=== PATIENT | female | born 1980 | race Caucasian/White ===

== ENCOUNTER 2016-11-04 23:52 | Emergency (ER) | payer OTHER ==
[2016-11-04 23:56] VITALS: TEMP 97.9; BMI 25.0
[2016-11-05] MEDS ORDERED: ACETAMINOPHEN 325 MG TABLET (FP) PO ONE (00:35)
[2016-11-05] MEDS ORDERED: diazePAM 5 MG TABLET PO ONE (00:35)
[2016-11-05] MEDS ORDERED: KETOROLAC TROMETHAMINE 30 MG/1 ML VIAL IVPUSH ONE (00:38)
--- NOTE | 2016-11-05 00:40 | PDOC ---
History of Present Illness - History of Present Illness Initial Comments: 11/05/16 01:30 Patient is a 36 year old female with no significant medical hx who is presenting to the ED with four hours of left shoulder pain and neck pain. Today the patient was at [employer] for her daughters birthday when she suddenly began experiencing left shoulder pain that radiates up her neck, down her arm. The patient endorses some tingling to her left arm. She also reports chest pain , palpitations and mild shortness of breath that began upon arrival to the ED. Denies recent trauma, injury, heavy lifting. Patient states something like this happened similarly a few months ago that she came to the ED but left prior to being seen but was not as severe. <Tosha Peters - Last Filed: 11/05/16 01:30> - General History Source: Patient Exam Limitations: No Limitations, Language Barrier (history taken in telugu by myself and via translation form with pt permission) - History of Present Illness Initial Comments: 11/05/16 00:38 <Rainer Barrett - Last Filed: 11/05/16 01:59> - General Chief Complaint: Pain Stated Complaint: LT ARM NUMB/HEADACHE Time Seen by Provider: 11/05/16 00:23 Past History <Tosha Peters - Last Filed: 11/05/16 01:30> - Past Medical History Asthma: No Cancer: No Cardiac Disorders: No Diabetes: No HTN: No Seizures: No Thyroid Disease: No - Surgical History Cholecystectomy: Yes - Reproductive History (#): 5 Para: 2 Spontaneous : 2 - Immunization History Td Vaccination: Yes TDAP Vaccination: Yes Immunization Up to Date: Yes - Psycho/Social/Smoking Cessation Hx Anxiety: No Suicidal Ideation: No Smoking Status: No Smoking History: Never smoked Have you smoked in the past 12 months: No Number of Cigarettes Smoked Daily: 0 Hx Alcohol Use: No Drug/Substance Use Hx: No Hx Substance Use Treatment: No <Rainer Barrett - Last Filed: 11/05/16 01:59> - Past Medical History Allergies/Adverse Reactions: Allergies Allergy/AdvReac Type Severity Reaction Status Date / Time No Known Drug Allergies Allergy Verified 11/04/16 23:56 cats/dogs/pollon Allergy Mild Rash Uncoded 11/04/16 23:56 Home Medications: Ambulatory Orders Cyclobenzaprine HCl [Flexeril 10 mg] 10 mg PO BID PRN #14 tablet 11/05/16 Review of Systems - Review of Systems Comments:: 11/05/16 01:31 CONSTITUTIONAL: No reported: Fever, Chills, Diaphoresis, Generalized Weakness, Malaise, Loss of Appetite HEENT: No reported: Rhinorrhea, Nasal Congestion, Throat Pain, Throat Swelling, Difficulty Swallowing, Mouth Swelling, Ear Pain, Eye Pain, Visual Changes CARDIOVASCULAR: Reported: Chest Pain, Palpitations No reported: Syncope, Irregular Heart Rate, Lightheadedness, Peripheral Edema RESPIRATORY: No reported: Cough, Shortness of Breath, SOB with Exertion, Orthopnea, Wheezing , Stridor, Hemoptysis GASTROINTESTINAL: No reported: Abdominal pain, Abdominal Distension, Nausea, Vomiting, Diarrhea, Constipation, Melena, Hematochezia GENITOURINARY: No reported: Dysuria, Frequency, Urgency, Hesitancy, Flank Pain, Genital Pain MUSCULOSKELETAL: Reported: Neck Pain, Shoulder Pain, LUE Pain No reported: Myalgia, Arthralgia, Joint Swelling SKIN: No reported: Rash, Itching, Pallor HEMEATOLOGIC/IMMUNOLOGIC: No reported: Easy Bleeding, Easy Bruising, Lymphadenopathy, Frequent infections ENDOCRINE: No reported: Unexplained Weight Gain, Unexplained Weight Loss, Heat Intolerance , Cold Intolerance NEUROLOGIC: Reported: Tingling Left Hand No reported: Headache, Focal Weakness, Vertigo, Lightheadedness, Unsteady Gait, Seizure, Mental Status Changes, Incontinence PSYCHIATRIC: No reported: Anxiety, Depression <Magdalene Petersa - Last Filed: 11/05/16 01:30> - Review of Systems Able to Perform ROS?: Yes Comments:: 11/05/16 00:39 <Rainer Barrett - Last Filed: 11/05/16 01:59> *Physical Exam - Vital Signs Last Vital Signs Temp Pulse Resp BP Pulse Ox 97.9 F 72 18 141/74 99 11/04/16 23:54 11/04/16 23:54 11/04/16 23:54 11/04/16 23:54 11/04/16 23:54 - Physical Exam Comments: 11/05/16 01:31 GENERAL: The patient is awake, alert, and fully oriented, Nontoxic - in no acute distress. HEAD: Normocephalic, atraumatic. EYES: extraocular movements intact, sclera anicteric, conjunctiva clear. ENT: Normal voice, Moist mucous membranes. NECK: Normal range of motion, supple LUNGS: Breath sounds equal, clear to auscultation bilaterally. No wheezes, no rhonchi, no rales. HEART: Regular rate and rhythm, normal S1 and S2 without murmur, rub or gallop. ABDOMEN: Soft, nontender, normoactive bowel sounds. No guarding, no rebound. . No CVA tenderness EXTREMITIES: Normal range of motion, no edema. No clubbing or cyanosis. No cords, erythema, or tenderness. radial pulses symmetric, sensation symmetric, strength symmetric in inventory planner strength BACK: no focal midline tenderness, +tenderness at the L trapezius with spasm/ mild hypertropotphy, NEUROLOGICAL: No facial assymetry, Normal speech, moving all 4 extremities spontaneously and symmetrically. PSYCH: Normal mood, normal affect. SKIN: Warm, Dry, normal turgor <FranTosha - Last Filed: 11/05/16 01:30> - Vital Signs Last Vital Signs Temp Pulse Resp BP Pulse Ox 97.9 F 72 18 141/74 99 11/04/16 23:54 11/04/16 23:54 11/04/16 23:54 11/04/16 23:54 11/04/16 23:54 <Rainer Barrett - Last Filed: 11/05/16 01:59> Heart Score/ECG Review - ECG Impressions Comment:: 11/05/16 00:56 Twelve-lead EKG was performed and reviewed by me. There is normal sinus rhythm with a normal rate. Rate of 65 The axis is normal. The intervals are normal. There is normal R wave progression There are no ST or T wave abnormalities. There artifacts present Impression: Normal twelve-lead EKG <Rainer Barrett - Last Filed: 11/05/16 01:59> ED Treatment Course - LABORATORY CBC & Chemistry Diagram: 11/05/16 00:50 11/05/16 00:50 - ADDITIONAL ORDERS Additional order review: Laboratory Results 11/05/16 11/05/16 00:50 00:50 Sodium 140 Potassium 4.0 Chloride 102 Carbon Dioxide 28 Anion Gap 10 BUN 16 D Creatinine 0.7 D Creat Clearance w eGFR > 60 Random Glucose 83 D Calcium 8.7 Total Bilirubin 0.2 D AST 26 ALT 53 D Alkaline Phosphatase 88 D Total Protein 7.8 Albumin 3.8 D Serum , Qual Negative 11/05/16 00:50 RBC 4.60 MCV 78.7 L MCHC 33.2 RDW 14.8 MPV 9.2 Neutrophils % 60.3 D Lymphocytes % 28.3 D Monocytes % 7.4 Eosinophils % 3.1 Basophils % 0.9 - Medications Given in the ED: ED Medications Discontinued Medications Generic Name Dose Route Start Last Admin Trade Name Boaz PRN Reason Stop Dose Admin Acetaminophen 650 mg 11/05/16 00:35 11/05/16 00:51 Tylenol - PO 11/05/16 00:36 650 mg ONCE ONE Administration Diazepam 5 mg 11/05/16 00:35 11/05/16 00:51 Valium - PO 11/05/16 00:36 5 mg ONCE ONE Administration Ketorolac Tromethamine 30 mg 11/05/16 00:38 11/05/16 01:20 Toradol Injection - IVPUSH 11/05/16 00:39 30 mg ONCE ONE Administration <Tosha Peters - Last Filed: 11/05/16 01:30> - LABORATORY CBC & Chemistry Diagram: 11/05/16 00:50 11/05/16 00:50 - RADIOLOGY Radiology Studies Ordered: Category Date Time Status CHEST X-RAY PORTABLE* [RAD] Stat Radiology 11/05/16 00:36 Ordered <Rainer Barrett - Last Filed: 11/05/16 01:59> Medical Decision Making - Medical Decision Making 11/05/16 00:39 36y F no significant pmhx presents with neck/shoulder pain and L arm tingling. The pt notes pain started this evening, palpable tenderness and tension in the L trapezius - suspect neck/muscle strain/spasm - but consider possible cervical radiculopathy - but as pt has reproducible tendenress, i think this is msk in nature. also consider aortic dissection - however the pt is young, not particularly hypertensive and has no risk factors for vascular disease. will give toradol, valium, tylenol will ck labs, cxr will reassess, if not improved will consider imaging A portion of this note was documented by scribe services under my direction. I have reviewed the details of the note, within reason, and agree with the documentation with the following case summary and management plan written by 11/05/16 01:45 cxr unremarkable pt feeling substantially improved still minimal necks/houlder pain that is reproducible - no associated chest pain , arm numbness/tingling will d/c the pt with supportive care for muscle spasm will hve pt fu with pmd for reevaluation return precautions were discussed I discussed the physical exam findings, ancillary test results and final diagnoses with the patient. I answered all of the patient's questions. The patient was satisfied with the care received and felt comfortable with the discharge plan and treatment plan. The patient will call their primary care physician within 24 hours to arrange follow-up and will return to the Emergency Department with any new, persistent or worsening symptoms. 11/05/16 01:59 <Rainer Barrett - Last Filed: 11/05/16 01:59> *DC/Admit/Observation/Transfer - Attestations Scribe Attestion: 11/05/16 01:32 Documentation prepared by Tosha Peters, acting as medical delivery technician for Rainer Barrett MD. <Tosha Peters - Last Filed: 11/05/16 01:30> - Discharge Dispostion Admit: No <Rainer Barrett - Last Filed: 11/05/16 01:59> Diagnosis at time of Disposition: Cervical radiculopathy - Discharge Dispostion Disposition: HOME Condition at time of disposition: Improved - Referrals Referrals: Anup Reis MD [Primary Care Provider] - - Patient Instructions Printed Discharge Instructions: DI for Neck Pain, DI for Cervical Radiculopathy Additional Instructions: Return to the emergency department immediately with ANY new, persistent or worsening symptoms including numbness, tingling, weakness, fevers or any other concerns. Take ibuprofen (400mg)/tylenol(650mg) every 6 hours for 2 days. Take the flexeril if you still have pain/discomfort. Caution in using flexeril as it may make you sleepy. Do not drive or put yourself in any position where you would be in danger. Apply heat to your sore muscles. You MUST call and follow up with your doctor tomorrow for further evaluation of your symptoms. Your emergency department visit is not complete without a followup with your doctor for reevaluation.. Results were discussed with you. Please make sure your doctor reviews the results of your emergency evaluation. Print Language: LAO
[2016-11-05] MEDS ORDERED: diazePAM 5 MG TABLET ONE (00:41)
[2016-11-05] MEDS ORDERED: ACETAMINOPHEN 325 MG TABLET (FP) ONE (00:41)
[2016-11-05 00:57] LABS: BASOPHIL 0.9 % (0-2.0); EOSINOPHIL 3.1 % (0-4.5); MCH 26.2 pg (25.7-33.7); MCHC 33.2 g/dl (32.0-36.0); MEAN CELL VOLUME 78.7 fl (80-96); MEAN PLT VOLUME 9.2 fl (7.5-11.1); NEUTROPHILS 60.3 % (42.8-82.8); PLATELET COUNT 292 K/MM3 (134-434); RDW 14.8 % (11.6-15.6); WHITE BLOOD COUNT 11.7 K/mm3 (4.0-10.0)
[2016-11-05] MEDS ORDERED: KETOROLAC TROMETHAMINE 30 MG/1 ML VIAL ONE (01:17)
[2016-11-05 01:23] LABS: ALBUMIN 3.8 g/dl (3.4-5.0); ANION GAP 10 (8-16); BILIRUBIN,TOTAL 0.2 mg/dL (0.2-1.0); CALCIUM 8.7 mg/dL (8.5-10.1); CO2 28 mmol/L (21-32); CREATININE 0.7 mg/dL (0.55-1.02); GLUCOSE,RANDOM 83 mg/dL (74-106); SGOT/AST 26 U/L (15-37); SGPT/ALT 53 U/L (12-78); TOT PROT 7.8 g/dl (6.4-8.2)
[2016-11-05 01:24] LABS: ALK PHOS 88 U/L (45-117)
[2016-11-05 02:21] VITALS: BP 107/63; PULSE 96
--- NOTE | 2016-11-05 17:16 | EKG ---
Test Reason : Blood Pressure : / mmHG Vent. Rate : 065 BPM Atrial Rate : 065 BPM P-R Int : 136 ms QRS Dur : 080 ms QT Int : 400 ms P-R-T Axes : 039 062 038 degrees QTc Int : 416 ms NORMAL SINUS RHYTHM NORMAL ECG NO PREVIOUS ECGS AVAILABLE Confirmed by ISIS POSADA MD ([id number]) on 11/05/2016 5:16:00 PM Referred By: Confirmed By:ISIS POSADA MD
== END 2016-11-05 02:24 | disposition home or self-care (01) ==
LOC: JER 23:52
PROC: 3E0333Z Introduction of Anti-inflammatory into Peripheral Vein, Percutaneous Approach (ICD-10-PCS; principal; 2016-11-04)
DX: M54.12 Radiculopathy, cervical region (principal)
CPT/HCPCS: 36415; 71010-TC; 80053; 84703; 85025; 93005; 93010; 99283-25

== ENCOUNTER 2017-11-03 19:14 | Emergency (ER) | payer OTHER ==
[2017-11-03 19:40] VITALS: BP 130/74; PULSE 78; TEMP 98.5; BMI 25.9
--- NOTE | 2017-11-03 21:49 | PDOC ---
History of Present Illness - General Chief Complaint: Syncope/Near Syncope Stated Complaint: SYNCOPE/NEAR SYNCOPE Time Seen by Provider: 11/03/17 21:48 - History of Present Illness Initial Comments: 11/03/17 22:17 This patient could not be found for evaluation Pt Left the ER prior to MD evaluation Past History - Past Medical History Allergies/Adverse Reactions: Allergies Allergy/AdvReac Type Severity Reaction Status Date / Time No Known Drug Allergies Allergy Verified 11/03/17 19:40 cats/dogs/pollon Allergy Mild Rash Uncoded 11/03/17 19:40 Home Medications: Ambulatory Orders Cyclobenzaprine HCl [Flexeril 10 mg] 10 mg PO BID PRN #14 tablet 11/05/16 Asthma: No Cancer: No Cardiac Disorders: No COPD: No Diabetes: No HTN: No Seizures: No Thyroid Disease: No - Surgical History Cholecystectomy: Yes - Reproductive History (#): 5 Para: 2 Spontaneous : 2 - Immunization History Td Vaccination: Yes TDAP Vaccination: Yes Immunization Up to Date: Yes - Suicide/Smoking/Psychosocial Hx Smoking Status: No Smoking History: Never smoked Have you smoked in the past 12 months: No Number of Cigarettes Smoked Daily: 0 Information on smoking cessation initiated: No Hx Alcohol Use: No Drug/Substance Use Hx: No Substance Use Type: None Hx Substance Use Treatment: No *Physical Exam - Vital Signs Last Vital Signs Temp Pulse Resp BP Pulse Ox 98.5 F 78 18 130/74 100 11/03/17 19:38 11/03/17 19:38 11/03/17 19:38 11/03/17 19:38 11/03/17 19:38 *DC/Admit/Observation/Transfer Diagnosis at time of Disposition: Near syncope - Discharge Dispostion Disposition: LEFT BEFORE [facility] - Referrals Referrals: Anup Reis MD [Primary Care Provider] - - Patient Instructions - Post Discharge Activity
== END 2017-11-03 22:04 | disposition left against medical advice (07) ==
LOC: JER 19:14
DX: Z53.21 Procedure and treatment not carried out due to patient leaving prior to being seen by health care provider (principal)
CPT/HCPCS: 99281-25

== ENCOUNTER 2018-02-23 22:08 | Emergency (ER) | payer OTHER ==
[2018-02-23 22:29] VITALS: BMI 29.0
--- NOTE | 2018-02-23 22:41 | PDOC ---
Attending Attestation - Resident Resident Name: Shai Curtis - ED Attending Attestation I have performed the following: I have examined & evaluated the patient, The case was reviewed & discussed with the resident, I agree w/resident's findings & plan, Exceptions are as noted - HPI HPI: 02/23/18 22:40 37y F no significant pmhx persents with complaint of syncope and ches tpain. The patient was at work, approx 7pm she felt some chest tightness, lightheaded, sob. pt the nsyncoped. pt denies any nauesa/vomiting, back pain, neck pain, headache, abdinal pain, diarrhea, melena, bpr, dysuria. LMP a few days ago. - Physicial Exam PE: 02/23/18 23:58 GENERAL: The patient is awake, alert, and fully oriented, Nontoxic - in no acute distress. HEAD: Normocephalic, mild tenderness to the L lateral/posterior scalp, w/o stepoffs EYES: extraocular movements intact, sclera anicteric, conjunctiva clear. ENT: Normal voice, dry mucous membranes. NECK: Normal range of motion, supple LUNGS: Breath sounds equal, clear to auscultation bilaterally. No wheezes, no rhonchi, no rales. HEART: Regular rate and rhythm, normal S1 and S2 without murmur, rub or gallop. ABDOMEN: Soft, nontender, normoactive bowel sounds. No guarding, no rebound. . No CVA tenderness EXTREMITIES: Normal range of motion, no edema. NEUROLOGICAL: No facial assymetry, Normal speech, PSYCH: Normal mood, normal affect. SKIN: Warm, Dry, normal turgor, 02/24/18 00:03 - Medical Decision Making 02/24/18 00:03 suspect vagal episode with mild dehydration will ck basic labs fluids for hydraiton acetaminophen for headache will reasses 02/24/18 01:05 Pts labs unremarkable pt feeling improved will dc with pmd and cardiology fu retur nprecautions were discussed Heart Score/ECG Review - ECG Impressions Comment:: 02/24/18 00:02 Twelve-lead EKG was performed and reviewed by me. There is normal sinus rhythm with a normal rate. Rate of 61 The axis is normal. The intervals are normal. There is normal R wave progression There are no ST or T wave abnormalities.
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
[2018-02-23 23:06] LABS: BASO % 0.5 % (0-2.0); HEMATOCRIT 33.6 % (32.4-45.2); HEMOGLOBIN 11.2 GM/dL (10.7-15.3); LYMPH % 31.6 % (8-40); MCH 26.2 pg (25.7-33.7); MCHC 33.3 g/dl (32.0-36.0); MEAN CELL VOLUME 78.6 fl (80-96); MEAN PLT VOLUME 8.6 fl (7.5-11.1); MONO % 8.8 % (3.8-10.2); NEUT % 58.1 % (42.8-82.8); PLATELET COUNT 257 K/MM3 (134-434); RBC 4.28 M/mm3 (3.60-5.2); RDW 15.1 % (11.6-15.6); WHITE BLOOD COUNT 7.5 K/mm3 (4.0-10.0)
[2018-02-23] MEDS ORDERED: SODIUM CHLORIDE 0.9% 500 ML INFUS.BAG IV ONE (23:06)
[2018-02-23] MEDS ORDERED: ACETAMINOPHEN 1000 MG/100 ML VIAL (NON FORMULARY) IVPB ONE (23:06)
[2018-02-23] MEDS ORDERED: ACETAMINOPHEN INJECTION 100 ML IVPB ONE (23:11)
[2018-02-23 23:17] LABS: URINE APPEARANCE CLEAR; URINE BILIRUBIN NEGATIVE (<2.0 mg/dL); URINE COLOR YELLOW; URINE GLUCOSE (UA) NEGATIVE (NEGATIVE); URINE KETONE NEGATIVE (NEGATIVE); URINE LEUK ESTERASE NEGATIVE (NEGATIVE); URINE NITRITE NEGATIVE (NEGATIVE); URINE UROBILINOGEN NEGATIVE mg/dL (0.2-1.0)
[2018-02-23 23:18] LABS: INR 1.11 (0.82-1.09); PROTHROMBIN TIME (PATIENT) 12.5 SEC (9.7-13.0)
[2018-02-23 23:30] LABS: URINE PROTEIN 1+ (NEGATIVE)
[2018-02-23 23:31] LABS: EPI CELLS RARE /HPF (FEW); URINE MUCUS RARE
[2018-02-23 23:36] LABS: ALBUMIN 3.6 g/dl (3.4-5.0); ANION GAP 7 (8-16); BILIRUBIN,TOTAL 0.2 mg/dL (0.2-1.0); BLOOD UREA NITROGEN 18 mg/dL (7-18); CALCIUM 8.8 mg/dL (8.5-10.1); CHLORIDE 107 mmol/L (98-107); CO2 27 mmol/L (21-32); CREATININE 0.9 mg/dL (0.55-1.02); GLUCOSE,RANDOM 80 mg/dL (74-106); POTASSIUM 3.9 mmol/L (3.5-5.1); SGOT/AST 24 U/L (15-37); SGPT/ALT 32 U/L (12-78); SODIUM 141 mmol/L (136-145); TOT PROT 7.3 g/dl (6.4-8.2)
[2018-02-23 23:39] LABS: ALK PHOS 67 U/L (45-117)
[2018-02-23 23:42] LABS: COCAINE, UR NEGATIVE ng/ml (CUTOFF=300); OPIATES, URI NEGATIVE ng/ml (CUTOFF=300); PHENCYCLIDINE,URINE NEGATIVE ng/ml (CUTOFF=25); URINE AMPHETAMINES NEGATIVE ng/ml (CUTOFF=500); URINE BARBITURATES NEGATIVE ng/ml (CUTOFF=200); URINE BENZODIAZEPINES NEGATIVE ng/ml (CUTOFF=200)
[2018-02-23 23:43] LABS: METHADONE, UR NEGATIVE ng/ml (CUTOFF=300)
[2018-02-24 00:49] VITALS: BP 126/68; PULSE 69; TEMP 98.2
--- NOTE | 2018-02-25 10:26 | EKG ---
Test Reason : Blood Pressure : / mmHG Vent. Rate : 061 BPM Atrial Rate : 061 BPM P-R Int : 142 ms QRS Dur : 080 ms QT Int : 408 ms P-R-T Axes : 057 068 049 degrees QTc Int : 410 ms NORMAL SINUS RHYTHM POSSIBLE LEFT ATRIAL ENLARGEMENT BORDERLINE ECG WHEN COMPARED WITH ECG OF 05-NOV-2016 00:06, NO SIGNIFICANT CHANGE WAS FOUND Confirmed by TERESA DOMINIQUE MD ([id number]) on 02/25/2018 10:26:23 AM Referred By: Confirmed By:TERESA DOMINIQUE MD
== END 2018-02-24 00:49 | disposition home or self-care (01) ==
LOC: JER 22:08
PROC: 3E033NZ Introduction of Analgesics, Hypnotics, Sedatives into Peripheral Vein, Percutaneous Approach (ICD-10-PCS; principal; 2018-02-23)
DX: R07.9 Chest pain, unspecified (principal); R55 Syncope and collapse
CPT/HCPCS: 36415; 80053; 80307; 81003; 81015; 84484; 85025; 85610; 93005; 93010; 96374; 99284-25; J0131

== ENCOUNTER 2020-11-11 16:08 | Emergency (ER) | payer OTHER ==
[2020-11-11 16:25] VITALS: BP 105/71; PULSE 85; TEMP 97.9; BMI 29.0
[2020-11-11] MEDS ORDERED: DOXYCYCLINE HYCLATE 100 MG CAPSULE PO ONE ×2 (17:13→17:27)
== END 2020-11-11 17:45 | disposition home or self-care (01) ==
LOC: JER 16:08
DX: L02.211 Cutaneous abscess of abdominal wall (principal)
CPT/HCPCS: 99284-25

== ENCOUNTER 2021-08-02 12:10 | Emergency (ER) | payer OTHER ==
[2021-08-02 12:29] VITALS: BP 110/78; PULSE 88; TEMP 98.7; BMI 29.6
[2021-08-03 18:08] LABS: SARS-CoV-2 NAA Detected (Not Detected)
== END 2021-08-02 14:43 | disposition home or self-care (01) ==
LOC: JER 12:10
DX: J06.9 Acute upper respiratory infection, unspecified (principal)
CPT/HCPCS: 87804; 87807; 99283-25; C9803; U0003; U0005

== ENCOUNTER 2021-10-10 15:57 | Emergency (ER) | payer OTHER ==
[2021-10-10 16:08] VITALS: BP 108/66; PULSE 79; TEMP 98.9; BMI 30.5
[2021-10-10] MEDS ORDERED: LIDOCAINE HCL 2% (50ML VIAL) SQ ONE (18:49)
[2021-10-10] MEDS ORDERED: LIDOCAINE HCL 2% (20ML MULTI-DOSE VIAL) ONE (18:51)
== END 2021-10-10 19:31 | disposition home or self-care (01) ==
LOC: JER 15:57
DX: L02.31 Cutaneous abscess of buttock (principal)
CPT/HCPCS: 87070; 87186; 87205; 99283-25

== ENCOUNTER 2022-05-17 16:52 | Emergency (ER) | payer OTHER ==
[2022-05-17 17:02] VITALS: BP 141/88; PULSE 73; RESP 18; TEMP 98.4; BMI 30.5
[2022-05-17] MEDS ORDERED: diazePAM 5 MG TABLET PO ONE (17:53)
[2022-05-17] MEDS ORDERED: KETOROLAC TROMETHAMINE 30 MG/1 ML VIAL IM ONE (17:53)
[2022-05-17] MEDS ORDERED: LIDOCAINE 5% TOPICAL PATCH TP ONE ×2 (17:54)
[2022-05-17] MEDS ORDERED: LIDOCAINE 5% TOPICAL PATCH ONE (17:58)
[2022-05-17] MEDS ORDERED: diazePAM 5 MG TABLET ONE (17:58)
[2022-05-17] MEDS ORDERED: KETOROLAC TROMETHAMINE 30 MG/1 ML VIAL ONE (17:58)
[2022-05-18] MEDS ORDERED: LIDOCAINE PATCH REMOVAL MC SCH (06:00)
== END 2022-05-17 20:12 | disposition home or self-care (01) ==
LOC: JER 16:52
PROC: 3E023GC Introduction of Other Therapeutic Substance into Muscle, Percutaneous Approach (ICD-10-PCS; principal; 2022-05-17)
DX: R07.89 Other chest pain (principal)
CPT/HCPCS: 71046-TC-FY; 99284-25